=== PATIENT | female | born 1985 | race Asian ===

== ENCOUNTER 2022-06-11 10:34 | Emergency (ER) | payer OTHER ==
[~2022-06-11] VITALS: Ht 160 cm; Wt 78.0 kg
[2022-06-11] MEDS ORDERED: KETOROLAC 15MG/ML VIAL IM ONE (12:15)
[2022-06-11 12:32] VITALS: BP 119/79
== END 2022-06-11 13:07 | disposition home or self-care (01) ==
LOC: ER 10:34
DX: J06.9 Acute upper respiratory infection, unspecified (principal); K21.9 Gastro-esophageal reflux disease without esophagitis; Z88.3 Allergy status to other anti-infective agents; Z86.16 Personal history of COVID-19
CPT/HCPCS: 71045; 81025; 87804; 96372; 99284; J1885